=== PATIENT | male | born 1980 | race Caucasian/White ===

== ENCOUNTER 2022-01-21 07:34 | Emergency (ER) | payer OTHER, SELFPAY ==
[2022-01-21 07:46] VITALS: BP 159/116; PULSE 73; RESP 18; TEMP 36.8; O2SAT 96; BMI 26.6
--- NOTE | 2022-01-21 08:37 | ED.EPISTAXIS ---
History of Present Illness General Chief Complaint: Epistaxis Stated Complaint: excessive nose bleed Time Seen by Provider: 01/21/22 08:17 Source: patient Mode of arrival: ambulatory Limitations: no limitations History of Present Illness HPI Narrative: 42 y/o male presenting with bilateral nose bleed that started about 1.5 hours ago. He has a history of nose bleeds over the winter when the air was dry. He states he bought and over the counter cautery used for small cuts on animals and put it into his nose on the left side to stop the bleeding at the time. He states he has been taking a lot of ibuprofen lately for dental pain but denies being on any anticoagulation. He denies any trauma. He has been holding compression for about an hour with intermittent dripping of blood, now only on the left side. Location: Yes bilateral nares Onset/current episode: Yes hour(s) Duration: Yes intermittent Pertinent past history: Yes history of previous nose bleed Associated symptoms: Yes headache Treatment prior to arrival: Yes nose pinching and Yes head leaning forward Related Data Previous Rx's Medication Instructions Recorded clindamycin HCl 300 mg capsule 300 mg PO TID #6 cap 01/21/22 oxycodone 5 mg tablet 5 mg PO Q8H PRN #7 tab 01/21/22 Allergies Allergy/AdvReac Type Severity Reaction Status Date / Time acetaminophen [From TYLENOL] Allergy Unknown HIVES Verified 01/21/22 07:46 Penicillins [PCN] Allergy Unknown UNKNOWN Verified 01/21/22 07:46 Review of Systems Constitutional: Constitutional: Denies chills, Denies fever(s) and Reports headache(s) Eyes: Eyes: Reports no additional eye complaints ENT: Reports dental pain, Denies vertigo, Reports dizziness, Denies otalgia, Denies facial pain, Reports headache(s), Reports epistaxis, Denies nasal congestion, Denies nasal discharge, Denies nasal obstruction, Denies nasal trauma, Denies nose pain, Denies sinus pain, Denies sinus pressure and Denies sore throat Cardiovascular: Cardiovascular: Denies chest pain Respiratory: Respiratory: Denies cough Gastrointestinal: Gastrointestinal: Reports nausea and Denies vomiting Neurologic: Denies vertigo, Reports dizziness and Reports headache(s) Psychiatric: Psychiatric: Reports anxiety Hematologic/Lymphatic: Hematologic/Lymphatic: Reports easy bleeding and Denies easy bruising PMFSH Past Medical History Attestation statement: The following information was validated with the patient. Social History Social History Advance Directives: No Advance Directives Information Provided: No Physical Exam Vital Signs: Vital Signs: Last Vital Signs Temp 98.3 F 01/21/22 07:46 Pulse 68 01/21/22 13:40 Resp 18 01/21/22 07:46 BP 172/110 H 01/21/22 13:40 Pulse Ox 98 01/21/22 13:40 BMI result Body Mass Index 26.6 Appearance: Alert. Oriented X3. No acute distress. Eyes: Pupils equal, round and reactive to light. ENT: normal inspection of bilateral ears, normal TMs bilaterally. dry crusted blood at bilateral nares with active oozing from anterior left nare, no blood seen in posterior oropharynx. Neck: Normal inspection. Neck supple. CVS: Normal heart rate and rhythm. Pulses normal. Respiratory: No respiratory distress. Breath sounds normal. Skin: Skin warm and dry. Normal skin color. Normal skin turgor. No rashes. Extremities: Normal inspection x4 Neuro: Oriented X 3. grossly normal, nonfocal Course Course Course Narrative: 42-year-old male presents to the ER with bilateral epistaxis for the last 1.5 hours. He is not on anticoagulation but has been taking ibuprofen regularly. On initial examination he has visible left knee air epistaxis, anterior sources identified and attempted cautery with silver nitrate stick. Patient tolerated well. Nasal clamp and Afrin applied. Will reassess. Reevaluation(s) Reevaluation #1: Upon re-evaluation patient developed right-sided bleeding with no visible source. He continues to cough up and spit out blood. He is anxious. Nasal clamp in Afrin reapplied. Reevaluation #2: Patient now with profuse bilateral nasal bleeding, unable to visualize source. Bilateral rhinorockets inserted with cessation of bleeding - oxycodone ordered for discomfort. will monitor, reassess and plan to deflate and remove one prior to discharge. Dr. Nichols at the bedside. Reevaluation #3: After 45 minutes of no bleeding, right nare rhinorocket was deflated, minimal drip of blood anteriorly likely from saturated packing, no active bleeding appreciated. right rhinorocket was removed with no visible bleeding. will monitor closely and reassess. Additional Reevaluation(s): Reassessed after 1 hour without right nasal packing. no recurrent bleeding. he is tolerant of the left nasal packing. at this time he is stable for discharge home with plan to come back in 2 days fo reassessment and removal of the packing. ppx anx and pain control ordered for d/c. patient counseled. ENT referral also given due to recurrence and severity Procedures Epistaxis Control Nostril: Yes bilateral Nose prepped with: Yes oxymetazoline Direct inspection: Yes unable to visualize Direct inspection method: Yes otoscope Clots removed by: Yes blowing nose Epistaxis treatment: Yes silver nitrate cautery and Yes inflatable pack Results of treatment: Yes bleeding controlled and Yes treatment well tolerated Complications: Yes pain Critical Care Time Critical Care Time Critical Care Time: Yes Total Critical Care Time: 40 Attestation: I have personally provided critical care time exclusive of time spent on separately billable procedures. Time includes frequent bedside reassessments and monitoring for potential decompensation. Intervention performed as documented. Discharge Plan Discharge Clinical Impression: Epistaxis Patient Disposition: Home, Self-Care Instructions: Nosebleed (ED) Additional Instructions: Come back to the ER on morning for packing removal Take the prescribed antibiotic to help prevent infection Take the prescribed pain medication as needed for severe pain Come back to the ER sooner if you develop recurrent bleeding that does not stop with direct pressure Prescriptions: New oxycodone 5 mg tablet 5 mg PO Q8H PRN (Reason: pain) Qty: 7 0RF clindamycin HCl 300 mg capsule 300 mg PO TID Qty: 6 0RF Referrals: Thang Russo [Physician] - 2 days (recurrent bilateral epistaxis) Stand Alone Forms: Work/School Release Interventions: ED Discharge Assessment Last Done: 01/21/22 13:59 Discharge Date/Time: 01/21/22 13:58
[2022-01-21] MEDS: Silver Nitrate Applicator STICK..EA. 1 APPL TOPICAL (08:40)
[2022-01-21] MEDS: Oxymetazoline HCl 0.05 % Nasal 15 ML SPRAY 2 SPRAY NOSTRIL-B (09:15)
[2022-01-21] MEDS: oxyCODONE HCl Immed Release 5 MG TABLET PO (10:39)
[2022-01-21] MEDS: ALPRAZolam 0.5 MG TABLET 1 MG PO (10:39)
[2022-01-21 11:37] VITALS: BP 154/99; PULSE 66; O2SAT 95
[2022-01-21 13:40] VITALS: BP 172/110; PULSE 68; O2SAT 98
== END 2022-01-21 13:58 | disposition home or self-care (01) ==
PROVIDERS: Emergency Provider Emergency Medicine
DX: R04.0 Epistaxis (principal); R51.9 Headache, unspecified; Z79.1 Long term (current) use of non-steroidal anti-inflammatories (NSAID)
CPT/HCPCS: 30901; 99283; 99291

== ENCOUNTER 2022-01-23 06:17 | Emergency (ER) | payer OTHER, SELFPAY ==
[2022-01-23 06:23] VITALS: BP 143/110; PULSE 71; RESP 18; TEMP 37.1; O2SAT 98; BMI 26.6
--- NOTE | 2022-01-23 07:45 | ED.GENADULT ---
HPI - General Adult General Chief complaint: General Medical Stated complaint: remove ng tube ? Time Seen by Provider: 01/23/22 06:20 Source: patient Mode of arrival: ambulatory Limitations: no limitations History of Present Illness HPI narrative: 42-year-old male who presents emergency department for evaluation and removal of left intranasal rhino rocket packing. The patient was seen in the emergency department on 01/21/2022 (2 days prior for a nose bleed x1 1/2 hours. The patient states that has a kidney get nose bleeds. States the last summer he did have multiple nose bleed secondary to dry nares. Patient was bleeding for several hours prior to coming to the emergency department and his left naris was packed with a rhino rocket. He states since being packed he has had no bleeding. He was advised return today to emergency department to have the packing removed. He states that he has not been ill in any other way. He has not noticed any easy bruisability. He has had no other unusual bleeding sites. Related Data Previous Rx's Medication Instructions Recorded clindamycin HCl 300 mg capsule 300 mg PO TID #6 cap 01/21/22 oxycodone 5 mg tablet 5 mg PO Q8H PRN #7 tab 01/21/22 Allergies Allergy/AdvReac Type Severity Reaction Status Date / Time acetaminophen [From TYLENOL] Allergy Unknown HIVES Verified 01/21/22 07:46 Penicillins [PCN] Allergy Unknown UNKNOWN Verified 01/21/22 07:46 Review of Systems Review of Systems: Yes all other systems are reviewed and are negative PMFSH Past Medical History Medical History Anxiety IBS (irritable bowel syndrome) Social History Social History Advance Directives: No Advance Directives Information Provided: No Physical Exam ED Vital Signs: Vital Signs - 24 hr 01/23/22 06:23 01/23/22 07:51 Temperature 98.7 F 97.9 F Pulse Rate 71 60 Respiratory Rate 18 16 Blood Pressure 143/110 H 110/71 Pulse Oximetry 98 99 BMI result Body Mass Index 26.6 Const Other: Awake, alert, male patient, very pleasant cooperative, he does not appear to be in distress. HENMT Other: Head is normal cephalic and atraumatic, the left naris is packed with a rhino rocket. Once this was removed I did inspect both nares with otoscope speculum. There does appear to be some increased erythema to the left nares anterior nasal septum but there was no visible blood vessel that needs cautery and there was no active bleeding. Course Course Course Narrative: 42-year-old male who presented to the emergency department on 01/21/2022 with several hours of bleeding from his left nares, he was packed with a rhino rocket. Returns today to have the packing removed. He has had no bleeding through the packing he has had no other unusual bleeding. The air was removed from the rhino rocket balloon . I then gently remove the rhino rocket. The patient does have some inflammatory changes noted on the left nares nasal septum but no active bleeding in no vessel that needs to be cauterized. Patient was discharged home printed and verbal instructions. Discharge Plan Discharge Clinical Impression: Encounter for removal of nasal packing Patient Disposition: Home, Self-Care Additional Instructions: Apply Vaseline to the inside of your nose twice a day. Do not use a Q-tip, you should finger. The nasal septum in your left nostril does appear to be inflamed and this is the area that your bleeding from. Trying not to touch this area or rub you know since this may cause the bleeding to recur. If the bleeding recurs, pinch the soft part of your nose for 20 minutes to stop bleeding. If you are unable stop the bleeding return to the emergency department. Prescriptions: No Action oxycodone 5 mg tablet 5 mg PO Q8H PRN (Reason: pain) Qty: 7 0RF clindamycin HCl 300 mg capsule 300 mg PO TID Qty: 6 0RF
[2022-01-23 07:51] VITALS: BP 110/71; PULSE 60; RESP 16; TEMP 36.6; O2SAT 99
== END 2022-01-23 08:49 | disposition home or self-care (01) ==
PROVIDERS: Emergency Provider Emergency Medicine Emergency Medical Services; PCP Internal Medicine
DX: Z48.00 Encounter for change or removal of nonsurgical wound dressing (principal); R04.0 Epistaxis
CPT/HCPCS: 99283